=== PATIENT | male | born 1995 | race Caucasian/White ===

== ENCOUNTER 2022-06-18 10:25 | Emergency (ER) | payer MEDICAID ==
[~2022-06-18] VITALS: Ht 177.8 cm; Wt 80.0 kg
[2022-06-18 10:27] VITALS: BP 134/81
== END 2022-06-18 13:12 | disposition left against medical advice (07) ==
LOC: ER 10:42
DX: Z53.21 Procedure and treatment not carried out due to patient leaving prior to being seen by health care provider (principal)